=== PATIENT | male | born 1930 | race Caucasian/White ===

== ENCOUNTER 2018-12-26 11:36 | Emergency (ER) | payer MEDICARE ==
[2018-12-26 12:55] LABS: #Basophils 0.1 thou/uL (0.0-0.2); #Eosinphils 0.1 thou/uL (0.0-0.7); #Lymphocytes 1.2 thou/uL (1.20-3.40); #Monocytes 0.5 thou/uL (0.11-0.59); #Neutrophils 7.8 thou/uL (1.40-6.50); %Eosinophils 1.3 % (0.0-10.0); %Lymphocytes 11.9 % (21.0-51.0); %Monocytes 5.3 % (0.0-10.0); %Neutrophils 80.5 % (42.0-75.0); Hemoglobin 15.2 g/dL (14.0-18.0); Mean Corpuscular HGB CONC 33.6 g/dL (32.0-36.0); Mean Corpuscular Hemoglobin 29.9 pg (27.0-31.0); Mean Platelet Volume 7.2 fL (7.4-10.4); Platelet Count 158 thou/uL (130-400); RBC Distribution Width 12.2 % (11.5-14.5); Red Blood Cell (RBC) Count 5.09 mill/uL (4.70-6.10); White Blood Cell (WBC) Count 9.7 thou/uL (4.8-10.8)
[2018-12-26 13:15] LABS: ALT (SGPT) 11 U/L (8-55); AST (SGOT) 18 U/L (5-34); Alkaline Phosphatase 75 U/L (40-150); Anion Gap 13 mmol/L (10-20); BUN (Urea Nitrogen) 21 mg/dL (8.4-25.7); Bilirubin, Total 0.8 mg/dL (0.2-1.2); Calc. Creatinine Clearance 0 mL/min (70-130); Calcium 9.4 mg/dL (7.8-10.44); Carbon Dioxide 26 mmol/L (23-31); Chloride 105 mmol/L (98-107); Estimated GFR-MDRD 60; Globulin 2.8 g/dL (2.4-3.5); Glucose 146 mg/dL (83-110); Lipase 78 U/L (8-78); Potassium 4.3 mmol/L (3.5-5.1); Protein, Total 6.8 g/dL (5.8-8.1); Sodium 140 mmol/L (136-145)
[2018-12-26] MEDS ORDERED: Ondansetron PF 4 MG/2 ML Vial ONE (13:25)
[2018-12-26] MEDS ORDERED: Metoclopramide HCl 10 MG/2 ML VIAL ONE (13:25)
--- NOTE | 2018-12-26 13:35 | CT ---
CT ABDOMEN NONCONTRAST CT PELVIS NONCONTRAST: (Urolithiasis protocol) DATE: 12/26/2018 HISTORY: 88-year-old male with mid abdominal pain, nausea, and vomiting. COMPARISON: Contrast CT to 07/31/2018 TECHNIQUE: IV injection of iodinated contrast media: None Oral contrast media: None FINDINGS: Other than for urolithiasis, the lack of IV and oral contrast limits the evaluation. Absence of right kidney. No hydronephrosis of left kidney. No calculus in the proximal and mid left u reter. Distal left ureter and much of the pelvis severely partially obscured by streak artifact from left hip arthroplasty hardware. 2 tiny calculi in left kidney. One is a 3 mm calculus at a lower pole calyx. The other is a 2 mm calcification in the left renal midpole parenchyma. No abdominal aortic aneurysm. 1.8 cm cyst in right lobe of liver. Within limitations of a noncontrast scan, no dyan ss abnormality identified involving pancreas, spleen, or abdominal aorta. No free fluid or free air identified. No interval change identified. IMPRESSION: 1) absent right kidney. 2. Status post left hip replacement arthroplasty. 3. Left nephrolithiasis, minimal 4. No acute findings.
[2018-12-26 14:05] LABS: Hemoglobin A1c 5.6 % (4.0-6.0)
== END 2018-12-26 14:25 | disposition home or self-care (01) ==
LOC: SCSER 11:36
DX: K31.84 Gastroparesis (principal); G30.9 Alzheimer's disease, unspecified; F02.80 Dementia in other diseases classified elsewhere, unspecified severity, without behavioral disturbance, psychotic disturbance, mood disturbance, and anxiety
CPT/HCPCS: 36415; 74176; 80053; 83036; 83605; 83690; 84484; 85025; 96361; 96374; 96375; J2405; J2765